=== PATIENT | female | born 1995 | race Hispanic/Latino ===

== ENCOUNTER 2021-02-11 06:38 | Day surgery (SDC) | payer OTHER ==
[2021-02-09 15:35] LABS: BASOPHILS % (AUTO) 0.2 % (0.0-5.0); EOSINOPHILS % (AUTO) 0.9 % (0.0-8.0); HEMATOCRIT 42.6 % (36-48); MEAN CORPUSCULAR HEMOGLOBIN 31.5 pg (27.0-33.0); MEAN CORPUSCULAR HGB CONC 33.1 g/dL (32.0-36.0); MEAN CORPUSCULAR VOLUME 95.1 fL (79-99); MONOCYTES % (AUTO) 5.8 % (3.0-13.0); NEUTROPHILS % (AUTO) 76.7 % (40.0-77.0); PLATELET COUNT (AUTO) 210 K/uL (130-400); RED BLOOD CELL COUNT(AUTO) 4.48 MIL/uL (4.00-5.50); RED CELL DISTRIBUTION WIDTH 11.9 % (11.0-15.5); WHITE BLOOD COUNT (AUTO) 9.2 K/uL (4.8-10.8)
[2021-02-10 09:07] VITALS: BP 118/71
[~2021-02-11] VITALS: Ht 152.4 cm; Wt 79.4 kg
[2021-02-11] MEDS ORDERED: PROPOFOL 10 MG/ML 20ML VIAL IV ONE (07:19)
[2021-02-11] MEDS ORDERED: FENTANYL CITRATE PF 50 MCG/1 ML 2ML VIAL ONE (07:19)
[2021-02-11] MEDS ORDERED: MIDAZOLAM HCL 1 MG/ML 2ML VIAL ONE (07:19)
[2021-02-11] MEDS ORDERED: LIDOCAINE PF 100MG/5ML (2%) SYRINGE 5ML ONE (07:19)
[2021-02-11 07:47] VITALS: BP 126/76
[2021-02-11] MEDS ORDERED: CEFAZOLIN SODIUM 1 GM VIAL IVP ONE ×2 (08:00→08:10)
[2021-02-11] MEDS ORDERED: LACTATED RINGERS 1000ML 1,000 ML IV SCH (08:00)
[2021-02-11] MEDS ORDERED: ONDANSETRON 4MG INJ ONE ×2 (08:17→09:33)
[2021-02-11] MEDS ORDERED: KETOROLAC 30MG VIAL (30MG/ML) ONE (08:19)
[2021-02-11] MEDS ORDERED: OXYTOCIN 10 USP UNITS/ML ONE (08:27)
[2021-02-11] MEDS ORDERED: METHYLERGONOVINE MALEATE 0.2 MG/1 ML ML ONE (08:29)
[2021-02-11] MEDS ORDERED: GLYCOPYRROLATE 1 MG/5 ML SYRINGE ONE (08:32)
[2021-02-11 09:25] VITALS: BP 104/69
[2021-02-11 09:40] VITALS: BP 106/58
[2021-02-11 09:55] VITALS: BP 107/71
== END 2021-02-11 10:20 | disposition home or self-care (01) ==
LOC: DAH 06:38
PROVIDERS: ATTEND Obstetrics & Gynecology
DX: O02.1 Missed abortion (principal); Z20.822 Contact with and (suspected) exposure to COVID-19; J45.909 Unspecified asthma, uncomplicated; Z87.891 Personal history of nicotine dependence
CPT/HCPCS: 36415; 59820; 84703; 85025; 86850; 86900; 86901; 87426; 96374; A4215 ×2; A4221 ×2; A4222 ×2; A4223 ×2; A4510; A4600; A4663 ×2; J0690 ×2; J1885; J2001; J2210; J2250; J2405 ×2; J2590; J2704; J3010; J3490; J7120